=== PATIENT | male | born 1990 | race Caucasian/White ===

== ENCOUNTER 2021-03-18 11:36 | Emergency (ER) | payer MEDICAID ==
[~2021-03-18] VITALS: Ht 165.1 cm; Wt 78.0 kg
[~2021-03-18 11:36] MED LIST: CEPH500C2 MT; DOXY100C5 MT; IBUP-2029 MT; SULF1TAB48 MT
[2021-03-18 12:52] VITALS: BP 126/79
== END 2021-03-18 12:53 | disposition home or self-care (01) ==
LOC: ER 11:46
DX: Z48.02 Encounter for removal of sutures (principal); Z91.040 Latex allergy status
CPT/HCPCS: 99281